=== PATIENT | female | born 1985 | race Caucasian/White ===

== ENCOUNTER → 2020-11-01 | Outpatient (CLI) | payer OTHER ==
[2020-11-01 13:30] LABS: HEMATOCRIT 36.6 % (36.0-47.0); HEMOGLOBIN 11.5 g/dl (12.0-15.5); MEAN CORPUSCULAR HEMOGLOBIN 25.9 pg (27.0-33.0); MEAN CORPUSCULAR HGB CONC 31.4 g/dl (32.0-36.5); MEAN CORPUSCULAR VOLUME 82.4 fl (80.0-96.0); PLATELET COUNT, AUTOMATED 451 10^3/uL (150-450); RED BLOOD COUNT 4.44 10^6/uL (4.00-5.40); WHITE BLOOD COUNT 10.5 10^3/uL (4.0-10.0)
[2020-11-01 14:43] LABS: HCG, SERUM QUANTITATIVE 2054 MIU/ML; HEPATITIS B SURFACE ANTIGEN NEGATIVE (NEGATIVE)
[2020-11-01 14:57] LABS: HEPATITIS C VIRUS ABY INDEX 0.2 INDEX (<0.8)
[2020-11-01 14:58] LABS: HIV 1&2 SCREEN CENTAUR NEGATIVE (NEGATIVE)
== END ==
LOC: M PLALAB 09:58
PROVIDERS: ATTEND Advanced Practice Midwife
DX: Z32.01 Encounter for pregnancy test, result positive (principal)

== ENCOUNTER → 2020-11-01 | Outpatient (REF) | payer OTHER | LOC: M LAB REF 12:35 | PROVIDERS: ATTEND Advanced Practice Midwife | DX: Z32.01 Encounter for pregnancy test, result positive (principal) ==

== ENCOUNTER → 2020-11-13 | Outpatient (REF) | payer OTHER | LOC: M LAB REF 16:20 | PROVIDERS: ATTEND Advanced Practice Midwife | DX: N39.0 Urinary tract infection, site not specified (principal) ==

== ENCOUNTER → 2020-11-15 | Outpatient (CLI) | payer OTHER ==
--- NOTE | 2020-11-15 16:10 | REP ---
INDICATION: DATING/VIABILITY. COMPARISON: None. TECHNIQUE: Real-time sonographic evaluation of gravid uterus performed. FINDINGS: There is a single living intrauterine gestation. The estimated gestational age is 7 weeks 0 days based on a crown-rump length of 10 mm, EDC 07/04/2021. The heart rate is 136 beats per minute. Cervix is closed and measures 4.1 cm in length. There is no evidence of a subchorionic hemorrhage. There is a 2.7 complex cystic area in the left ovary probably representing a corpus luteum. Blood flow is seen in the left ovary with duplex Doppler evaluation. The right ovary is unremarkable. IMPRESSION: Viable intrauterine gestation as above. <Electronically signed by Clinton Morris > 11/15/20 [id number]
== END ==
LOC: M WHC 10:04
PROVIDERS: ATTEND Advanced Practice Midwife
DX: Z36.9 Encounter for antenatal screening, unspecified (principal); Z3A.01 Less than 8 weeks gestation of pregnancy

== ENCOUNTER → 2020-12-16 | Outpatient (CLI) | payer OTHER ==
[2020-12-16 11:50] LABS: CREATININE, URINE 66.8 MG/DL; URINE TOTAL PROTEIN 5.9 MG/DL (0-12)
[2020-12-16 12:09] LABS: ALT/SGPT 13 U/L (12-78); BILIRUBIN,TOTAL 0.2 MG/DL (0.2-1.0); FREE THYROXINE INDEX 3.3 % (1.3-4.8); GLOMERULAR FILTRATION RATE > 60.0 (>60); LDH LACTATE DEHYDROGENASE 119 U/L (84-246); T UPTAKE 23 % (30-39); THYROXINE (T4) 14.5 UG/DL (4.5-12.0); URIC ACID 3.6 MG/DL (2.6-6.0)
[2020-12-16 15:07] LABS: CREATININE 24 HOUR, URINE 1870.4 MG/24HR (600-1800); TOTAL PROTEIN 24 HOUR URINE 165.2 MG/24HR (50-150)
== END ==
LOC: M PLALAB 08:15
PROVIDERS: ATTEND Advanced Practice Midwife
DX: Z36.89 Encounter for other specified antenatal screening (principal); Z3A.00 Weeks of gestation of pregnancy not specified

== ENCOUNTER → 2021-02-17 | Outpatient (CLI) | payer OTHER ==
--- NOTE | 2021-02-17 09:22 | REP ---
INDICATION: ANATOMY. COMPARISON: 11/15/2020. TECHNIQUE: Real-time sonographic evaluation of the gravid uterus performed. FINDINGS: Estimated gestational age is20 weeks 3 days, EDC 07/04/2021. Today's measurements indicate appropriate growth. Presentation: Variable Placenta anterior, grade 1, without evidence of placenta previa. heart rate is recorded at 161 beats per minute. Amniotic fluid is subjectively normal. Closed cervical length is measured at 4.2 cm. Biometry chart: BPD: 50 mm, 21 weeks 2 days, 70th percentile. HC: 195 mm, 21 weeks 5 days, 86th percentile AC: 160 mm, 21 weeks 1 days, 63rd percentile Femur length: 35 mm, 21 weeks 1 days, 68th percentile HC to AC ratio: 1.22, normal range 1.06-1.24. Estimated weight: 405g, 83rd percentile. anatomy: Cranium: Grossly normal Lateral Ventricles/Choroid Plexus: Grossly normal Posterior Fossa/Cerebellum: Grossly normal Nose/lips/profile: Grossly normal Four chamber heart: Not well seen Right ventricular outflow tract: Not well seen Left ventricular outflow tract: Not well seen Left-sided stomach: Grossly normal Kidneys: Not well seen Bladder: Grossly normal Cord Insertion: Grossly normal 3 vessel cord: Grossly normal Spine: Not well seen IMPRESSION: Viable single intrauterine gestation as above. Four-chamber heart, ventricular outflow tracts, kidneys and spine not well seen due to position and patient body habitus. <Electronically signed by Clinton Morris > 02/17/21 [id number]
== END ==
LOC: M WHC 06:58
PROVIDERS: ATTEND Obstetrics & Gynecology
DX: O09.512 Supervision of elderly primigravida, second trimester (principal); Z3A.20 20 weeks gestation of pregnancy

== ENCOUNTER → 2021-03-19 | Outpatient (CLI) | payer OTHER, MEDICAID ==
--- NOTE | 2021-03-19 10:46 | REP ---
INDICATION: F/U ANATOMY COMPARISON: 02/17/2021 TECHNIQUE: Transabdominal obstetrical ultrasound with color Doppler evaluation. FINDINGS: Examination demonstrates a single live intrauterine in breech presentation. motion is identified by technologist. Placenta is noted anterior and grade 1 without evidence for placenta previa or abruption. Amniotic fluid volume is normal. Cervix measures 3.7 cm in length and appears closed.. Gestational age by 1st U/S 24 weeks 5 days with CORI 07/04/2021. Gestational age by current measurements 25 weeks 6 days with CORI 06/26/2021. FHR equals 156 beats per minute. Estimated weight 839 grams (61stpercentile). Anatomical assessment demonstrates normal structures including spine and kidneys. Continued limited evaluation of the heart and ventricular outflow tracts due to positioning. IMPRESSION: Single live intrauterine in breech presentation demonstrating appropriate estimated weight and growth. Continued limited evaluation of the heart and cardiac ventricular outflow tracts. <Electronically signed by Mega Glynn > 03/19/21 [id number]
== END ==
LOC: M WHC 07:39
PROVIDERS: ATTEND Advanced Practice Midwife
DX: Z36.89 Encounter for other specified antenatal screening (principal); Z3A.25 25 weeks gestation of pregnancy

== ENCOUNTER → 2021-04-28 | Outpatient (CLI) | payer OTHER, MEDICAID ==
[2021-04-28 13:34] LABS: HEMATOCRIT 33.2 % (36.0-47.0); HEMOGLOBIN 10.4 g/dl (12.0-15.5); MEAN CORPUSCULAR HEMOGLOBIN 27.2 pg (27.0-33.0); MEAN CORPUSCULAR HGB CONC 31.3 g/dl (32.0-36.5); MEAN CORPUSCULAR VOLUME 86.7 fl (80.0-96.0); PLATELET COUNT, AUTOMATED 321 10^3/uL (150-450); RED BLOOD COUNT 3.83 10^6/uL (4.00-5.40); WHITE BLOOD COUNT 11.5 10^3/uL (4.0-10.0)
== END ==
LOC: M LAB 12:05
PROVIDERS: ATTEND Advanced Practice Midwife
DX: Z34.82 Encounter for supervision of other normal pregnancy, second trimester (principal)

== ENCOUNTER → 2021-05-26 | Outpatient (CLI) | payer OTHER, MEDICAID ==
[2021-05-26 09:24] LABS: CREATININE 24 HOUR, URINE 1938.2 MG/24HR (600-1800); CREATININE, URINE 88.1 MG/DL; TOTAL PROTEIN 24 HOUR URINE 200.2 MG/24HR (50-150); URINE TOTAL PROTEIN 9.1 MG/DL (0-12)
[2021-05-26 09:33] LABS: HEMATOCRIT 33.3 % (36.0-47.0); HEMOGLOBIN 10.6 g/dl (12.0-15.5); MEAN CORPUSCULAR HEMOGLOBIN 27.2 pg (27.0-33.0); MEAN CORPUSCULAR HGB CONC 31.8 g/dl (32.0-36.5); MEAN CORPUSCULAR VOLUME 85.6 fl (80.0-96.0); PLATELET COUNT, AUTOMATED 328 10^3/uL (150-450); RED BLOOD COUNT 3.89 10^6/uL (4.00-5.40); WHITE BLOOD COUNT 9.7 10^3/uL (4.0-10.0)
[2021-05-26 09:38] LABS: ALT/SGPT 20 U/L (12-78); BILIRUBIN,TOTAL 0.2 MG/DL (0.2-1.0); CREATININE FOR GFR 0.46 MG/DL (0.55-1.30); GLOMERULAR FILTRATION RATE > 60.0 (>60); LDH LACTATE DEHYDROGENASE 156 U/L (84-246); URIC ACID 3.8 MG/DL (2.6-6.0)
== END ==
LOC: M LAB 08:31
PROVIDERS: ATTEND Advanced Practice Midwife
DX: O10.013 Pre-existing essential hypertension complicating pregnancy, third trimester (principal); Z3A.00 Weeks of gestation of pregnancy not specified

== ENCOUNTER → 2021-05-29 | Outpatient (REF) | payer OTHER, MEDICAID | LOC: M LAB REF 13:19 | PROVIDERS: ATTEND Obstetrics & Gynecology | DX: Z36.89 Encounter for other specified antenatal screening (principal) ==

== ENCOUNTER → 2021-06-03 | Outpatient (CLI) | payer OTHER, MEDICAID ==
--- NOTE | 2021-06-03 14:58 | REP ---
INDICATION: PREG, NON REACTIVE NST. TECHNIQUE: Transabdominal scanning FINDINGS: Multiple ultrasonographic images of the gravid uterus shows a single living intrauterine gestation in the cephalic presentation. Doppler interrogation of the heart shows a heart rate of 162 beats per minute. The placenta is anterior and not low-lying. The cervix measures 3.6 cm in length and is closed. Doppler interrogation of the umbilical artery shows an A\B ratio of 2.09. This is within the normal range. The subjective amniotic fluid volume is within normal limits. The calculated amniotic fluid index is 10.4 with an expected range 7.8 to 24.9. biophysical profile score is 2 for breathing, 2 for movement, 2 for tone, and 2 for amniotic fluid volume giving a sum total of 8/8. FINDINGS: As above IMPRESSION: Limited OB ultrasound as described above. <Electronically signed by Bo Luna > 06/03/21 [id number]
== END ==
LOC: M RAD 13:30
PROVIDERS: ATTEND Obstetrics & Gynecology
DX: O10.013 Pre-existing essential hypertension complicating pregnancy, third trimester (principal)

== ENCOUNTER → 2021-06-25 | Outpatient (CLI) | payer OTHER, MEDICAID ==
--- NOTE | 2021-06-25 16:12 | REP ---
INDICATION: NON REACTIVE NFT. Gestational diabetes a . Pre-existing essential hypertension. For biophysical profile and LILLI. COMPARISON: Comparison study June 03, 2021. TECHNIQUE: Limited transabdominal obstetric scanning. FINDINGS: Limited Ob sonography demonstrates a viable cephalic intrauterine gestation. heart rate is recorded at 149 beats per minute. Anterior grade 2 placenta is seen. Amniotic fluid is subjectively decreased. LILLI is decreased at 5.2 cm. Biophysical profile score is 8 out of a possible 8. SD ratio in the umbilical cord artery by Doppler is normal at 2.06. IMPRESSION: Oligohydramnios. Biophysical profile 06/01. <Electronically signed by Dionisio Dejesus > 06/25/21 [id number]
== END ==
LOC: M RAD 15:27
PROVIDERS: ATTEND Advanced Practice Midwife
DX: O10.013 Pre-existing essential hypertension complicating pregnancy, third trimester (principal); O24.415 Gestational diabetes mellitus in pregnancy, controlled by oral hypoglycemic drugs; O41.03X0 Oligohydramnios, third trimester, not applicable or unspecified; Z3A.00 Weeks of gestation of pregnancy not specified

== ENCOUNTER → 2021-07-15 | Outpatient (REF) | payer OTHER, MEDICAID | LOC: M LAB REF 11:53 | PROVIDERS: ATTEND Specialist | DX: Z11.52 Encounter for screening for COVID-19 (principal) ==

== ENCOUNTER → 2023-01-03 | Outpatient (REF) | payer BC, MEDICAID | LOC: M LAB REF 20:27 | PROVIDERS: ATTEND Physician Assistant | DX: R07.0 Pain in throat (principal) ==

== ENCOUNTER → 2023-03-12 | Outpatient (REF) | payer BC, MEDICAID ==
[2023-03-12 17:23] LABS: BLOOD UREA NITROGEN 13 MG/DL (9-23); CALCIUM LEVEL 8.9 MG/DL (8.5-10.1); CARBON DIOXIDE LEVEL 26 MMOL/L (20-31); CHLORIDE LEVEL 104 MMOL/L (98-107); CREATININE FOR GFR 0.49 MG/DL (0.55-1.30); GLOMERULAR FILTRATION RATE > 60.0 (>60); GLUCOSE, FASTING 124 MG/DL (60-100); POTASSIUM SERUM 4.9 MMOL/L (3.5-5.1); SODIUM LEVEL 136 MMOL/L (136-145)
== END ==
LOC: M LAB REF 16:18
PROVIDERS: ATTEND Physician Assistant
DX: I10 Essential (primary) hypertension (principal)

== ENCOUNTER → 2023-05-26 | Outpatient (REF) | payer BC, MEDICAID ==
[2023-05-26 17:11] LABS: HEMATOCRIT 39.8 % (36.0-47.0); HEMOGLOBIN 13.3 g/dl (12.0-15.5); MEAN CORPUSCULAR HEMOGLOBIN 28.4 pg (27.0-33.0); MEAN CORPUSCULAR HGB CONC 33.4 g/dl (32.0-36.5); PLATELET COUNT, AUTOMATED 359 10^3/uL (150-450); RED BLOOD COUNT 4.68 10^6/uL (4.00-5.40)
[2023-05-26 17:34] LABS: ALBUMIN 3.6 G/DL (3.2-5.2); ALKALINE PHOSPHATASE 80 U/L (46-116); ALT/SGPT 30 U/L (7.0-40); AST/SGOT 33 U/L (<34); BILIRUBIN,TOTAL 0.4 MG/DL (0.3-1.2); BLOOD UREA NITROGEN 10 MG/DL (9-23); CALCIUM LEVEL 8.6 MG/DL (8.5-10.1); CARBON DIOXIDE LEVEL 21 MMOL/L (20-31); CHLORIDE LEVEL 104 MMOL/L (98-107); CHOLESTEROL LEVEL 165 MG/DL (<200); CHOLESTEROL RISK RATIO 3.97 (<5); CREATININE FOR GFR 0.42 MG/DL (0.55-1.30); GLOMERULAR FILTRATION RATE > 60.0 (>60); GLUCOSE, FASTING 105 MG/DL (60-100); HDL CHOLESTEROL 41.5 MG/DL (>40); LDL CHOLESTEROL 94.5 MG/DL (<100); NON-HDL-C 123.5 MG/DL; POTASSIUM SERUM 4.7 MMOL/L (3.5-5.1); SODIUM LEVEL 136 MMOL/L (136-145); TRIGLYCERIDES LEVEL 145 MG/DL (<150)
[2023-05-26 18:18] LABS: HEMOGLOBIN A1c 6.4 % (4.0-6.0)
== END ==
LOC: M LAB REF 16:07
PROVIDERS: ATTEND Physician Assistant
DX: I10 Essential (primary) hypertension (principal)

== ENCOUNTER → 2023-09-09 | Outpatient (REF) | payer BC, MEDICAID, OTHER ==
[2023-09-09 17:06] LABS: CREATININE, URINE 137.6 MG/DL
[2023-09-09 17:07] LABS: MAU/CREAT RATIO 42.1 MCG/MG (0.0-30.0)
== END ==
LOC: M LAB REF 16:19
PROVIDERS: ATTEND Nurse Practitioner Family
DX: R73.03 Prediabetes (principal)

== ENCOUNTER → 2023-11-12 | Outpatient (CLI) | payer OTHER ==
[2023-11-12 15:33] LABS: HEMATOCRIT 36.3 % (36.0-47.0); MEAN CORPUSCULAR HEMOGLOBIN 28.8 pg (27.0-33.0); MEAN CORPUSCULAR HGB CONC 33.1 g/dl (32.0-36.5); MEAN CORPUSCULAR VOLUME 87.3 fl (80.0-96.0); PLATELET COUNT, AUTOMATED 429 10^3/uL (150-450); RED BLOOD COUNT 4.16 10^6/uL (4.00-5.40); WHITE BLOOD COUNT 11.6 10^3/uL (4.0-10.0)
== END ==
LOC: M LAB 13:18
PROVIDERS: ATTEND Nurse Practitioner Women's Health
DX: N92.4 Excessive bleeding in the premenopausal period (principal); T83.32XA Displacement of intrauterine contraceptive device, initial encounter

== ENCOUNTER → 2023-11-12 | Outpatient (CLI) | payer OTHER ==
[2023-11-12 14:16] LABS: HEMATOCRIT 35.9 % (36.0-47.0)
[2023-11-12 14:17] LABS: BASO # 0.1 10^3/uL (0.0-0.2); BASO % 0.5 % (0.0-1.0); EOS # 0.2 10^3/uL (0.0-0.5); EOS % 1.6 % (0.0-3.0); HEMOGLOBIN 12.1 g/dl (12.0-15.5); LYMPH % 35.4 % (24.0-44.0); MEAN CORPUSCULAR HEMOGLOBIN 29.4 pg (27.0-33.0); MEAN CORPUSCULAR HGB CONC 33.6 g/dl (32.0-36.5); MEAN CORPUSCULAR VOLUME 87.4 fl (80.0-96.0); MONO # 0.7 10^3/uL (0.0-0.8); NEUTROPHILS # 6.3 10^3/uL (1.5-8.5); NEUTROPHILS % 56.2 % (36.0-66.0); PLATELET COUNT, AUTOMATED 429 10^3/uL (150-450); RED BLOOD COUNT 4.12 10^6/uL (4.00-5.40); WHITE BLOOD COUNT 11.3 10^3/uL (4.0-10.0)
[2023-11-12 14:37] LABS: IRON (FE) 69 UG/DL (50-170)
[2023-11-12 14:38] LABS: ALBUMIN 3.5 G/DL (3.2-5.2); ALKALINE PHOSPHATASE 77 U/L (46-116); ALT/SGPT 19 U/L (7.0-40); AST/SGOT 11 U/L (<34); BILIRUBIN,TOTAL 0.4 MG/DL (0.3-1.2); BLOOD UREA NITROGEN 9 MG/DL (9-23); CALCIUM LEVEL 9.2 MG/DL (8.5-10.1); CARBON DIOXIDE LEVEL 26 MMOL/L (20-31); CHLORIDE LEVEL 110 MMOL/L (98-107); CREATININE FOR GFR 0.54 MG/DL (0.55-1.30); GLOMERULAR FILTRATION RATE > 60.0 (>60); GLUCOSE, FASTING 82 MG/DL (60-100); PERCENT SATURATION 21.9 % (13.2-45.0); PHOSPHORUS LEVEL 3.5 MG/DL (2.5-4.9); POTASSIUM SERUM 4.1 MMOL/L (3.5-5.1); SODIUM LEVEL 142 MMOL/L (136-145); TOTAL IRON BINDING CAPACITY 315 UG/DL (250-425); TOTAL PROTEIN 6.8 G/DL (5.7-8.2)
[2023-11-12 14:40] LABS: FERRITIN 54.7 NG/ML (7.3-270.7); TOTAL 25(OH) VITAMIN D 42.1 NG/ML (20.0-100.0); VITAMIN B12 LEVEL 255 PG/ML (211-911)
[2023-11-12 14:41] LABS: HEMOGLOBIN A1c 5.5 % (4.0-6.0)
== END ==
LOC: M LAB 13:21
PROVIDERS: ATTEND Student in an Organized Health Care Education/Training Program
DX: Z98.84 Bariatric surgery status (principal)

== ENCOUNTER 2023-12-14 08:27 | Emergency (ER) | payer MEDICAID, OTHER ==
[~2023-12-14] VITALS: Ht 157.5 cm; Wt 96.7 kg
[2023-12-14 08:28] VITALS: BP 186/104; TEMP 96.5; O2SAT 98
== END 2023-12-14 12:05 | disposition left against medical advice (07) ==
LOC: M ED 08:27
DX: Z53.21 Procedure and treatment not carried out due to patient leaving prior to being seen by health care provider (principal)

== ENCOUNTER → 2023-12-21 | Outpatient (REF) | payer MEDICAID | LOC: M LAB REF 17:58 | PROVIDERS: ATTEND Physician Assistant | DX: Z12.4 Encounter for screening for malignant neoplasm of cervix (principal); Z11.3 Encounter for screening for infections with a predominantly sexual mode of transmission ==

== ENCOUNTER → 2024-01-04 | Outpatient (CLI) | payer MEDICAID, OTHER | LOC: M RAD 12:37 | PROVIDERS: ATTEND Nurse Practitioner Women's Health | DX: T83.32XA Displacement of intrauterine contraceptive device, initial encounter (principal); N83.201 Unspecified ovarian cyst, right side; N83.202 Unspecified ovarian cyst, left side; Y83.1 Surgical operation with implant of artificial internal device as the cause of abnormal reaction of the patient, or of later complication, without mention of misadventure at the time of the procedure ==

== ENCOUNTER 2024-06-21 12:14 | Day surgery (SDC) | payer OTHER ==
[~2024-06-21] VITALS: Ht 157.5 cm; Wt 83.5 kg
[~2024-06-21 12:14] MED LIST: ABIL1TAB11 PO; CETI10TA4 PO; CITRTAB18 PO; CVS5000S2 PO; LOSA100T46 PO; LR 1,000 ML IV SCH; THERTAB52 PO; VENL150C43 PO; VENL75CA47 PO
[2024-06-21] MEDS ORDERED: LR 1,000 ML IV SCH ×3 (12:55→15:50)
[2024-06-21] MEDS ORDERED: fentaNYL 100 MCG/2 ML INJECTION As Ordered ONE (14:14)
[2024-06-21] MEDS ORDERED: propofoL 200 MG/20 ML VIAL As Ordered ONE (14:14)
[2024-06-21] MEDS ORDERED: MIDAZOLAM INJ 2MG/2ML VIAL As Ordered ONE (14:14)
[2024-06-21] MEDS ORDERED: GLYCOPYRROLATE INJ 0.2 MG/ML 2 ML VIAL As Ordered ONE (14:14)
[2024-06-21] MEDS ORDERED: ONDANSETRON 4MG 2ML VIAL As Ordered ONE (14:14)
[2024-06-21] MEDS ORDERED: KETOROLAC 60MG 2ML VIAL As Ordered ONE (14:14)
[2024-06-21] MEDS ORDERED: ACETAMINOPHEN 1000MG 100ML IV BAG As Ordered ONE (14:14)
[2024-06-21] MEDS: LIDOCAINE 1% SDV 30ML VIAL As Ordered ONE (14:15)
[2024-06-21] MEDS ORDERED: LIDOCAINE 2% 100MG/5ML SDV (FOR ANES.) As Ordered ONE (14:16)
[2024-06-21] MEDS: LEVONORGESTREL 52MG (MIRENA) IUD As Ordered ONE (14:57)
[2024-06-21] MEDS ORDERED: ONDANSETRON 4MG 2ML VIAL IV PRN (15:05)
[2024-06-21] MEDS ORDERED: fentaNYL 100 MCG/2 ML INJECTION IV PRN (15:05)
[2024-06-21] MEDS ORDERED: HYDROMORPHONE HCL 0.5 MG/ 0.5 ML SYRINGE IV PRN (15:05)
[2024-06-21] MEDS ORDERED: oxyCODONE 5MG TAB PO PRN (15:05)
[2024-06-21 15:45] VITALS: BP 130/83; TEMP 97.9; O2SAT 100
[2024-06-21] MEDS ORDERED: PERCOCET 5MG/325MG TAB PO PRN (15:50)
[2024-06-21] MEDS ORDERED: SIMETHICONE 80MG CHEW TAB PO SCH (18:00)
[2024-06-22] MEDS ORDERED: IBUPROFEN 800 MG TAB PO SCH
== END 2024-06-21 16:05 | disposition home or self-care (01) ==
LOC: M SDC 12:14
PROVIDERS: ATTEND Obstetrics & Gynecology
DX: T83.32XA Displacement of intrauterine contraceptive device, initial encounter (principal); Y79.2 Prosthetic and other implants, materials and accessory orthopedic devices associated with adverse incidents; I10 Essential (primary) hypertension; J45.909 Unspecified asthma, uncomplicated; Z79.899 Other long term (current) drug therapy; F17.290 Nicotine dependence, other tobacco product, uncomplicated; F32.A Depression, unspecified; F41.9 Anxiety disorder, unspecified; Z98.84 Bariatric surgery status; Z91.013 Allergy to seafood; Z88.1 Allergy status to other antibiotic agents; Z88.8 Allergy status to other drugs, medicaments and biological substances

== ENCOUNTER 2024-06-28 19:45 | Emergency (ER) | payer OTHER ==
[~2024-06-28 19:45] MED LIST changes: -LR 1,000 ML IV SCH
== END 2024-06-28 20:18 | disposition left against medical advice (07) ==
LOC: M ED 19:45
DX: Z53.21 Procedure and treatment not carried out due to patient leaving prior to being seen by health care provider (principal)

== ENCOUNTER → 2024-09-25 | Outpatient (REF) | LOC: M EMP 07:55 | PROVIDERS: ATTEND Family Medicine | DX: Z11.52 Encounter for screening for COVID-19 (principal) ==

== ENCOUNTER → 2024-09-25 | Outpatient (REF) | LOC: M EMP 07:59 | PROVIDERS: ATTEND Family Medicine | DX: Z11.52 Encounter for screening for COVID-19 (principal) ==

== ENCOUNTER → 2024-12-07 | Outpatient (CLI) | payer OTHER ==
[2024-12-07 19:10] LABS: BLOOD UREA NITROGEN 23 MG/DL (9-23); CALCIUM LEVEL 8.7 MG/DL (8.5-10.1); CARBON DIOXIDE LEVEL 25 MMOL/L (20-31); CHLORIDE LEVEL 103 MMOL/L (98-107); CREATININE FOR GFR 0.77 MG/DL (0.55-1.30); GLOMERULAR FILTRATION RATE > 60.0 (>58); GLUCOSE, FASTING 68 MG/DL (60-100); POTASSIUM SERUM 4.7 MMOL/L (3.5-5.1); SODIUM LEVEL 140 MMOL/L (136-145); THYROID STIMULATING HORMONE 0.508 uIU/ML (0.55-4.78)
== END ==
LOC: M LAB 13:29
PROVIDERS: ATTEND Physician Assistant
DX: I10 Essential (primary) hypertension (principal)

== ENCOUNTER → 2025-01-08 | Outpatient (REF) | LOC: M EMP 12:41 | PROVIDERS: ATTEND Family Medicine | DX: Z11.52 Encounter for screening for COVID-19 (principal) ==

== ENCOUNTER → 2025-03-10 | Outpatient (CLI) | payer OTHER | LOC: M LAB 13:28 | PROVIDERS: ATTEND Physician Assistant | DX: R89.1 Abnormal level of hormones in specimens from other organs, systems and tissues (principal) ==

== ENCOUNTER → 2025-04-24 | Outpatient (REF) | payer OTHER | LOC: M LAB REF 17:37 | PROVIDERS: ATTEND Nurse Practitioner Family | DX: R10.12 Left upper quadrant pain (principal) ==

== ENCOUNTER → 2025-05-01 | Outpatient (CLI) | payer OTHER ==
[~2025-05-01] MED LIST changes: +ISOVUE-370 76% 100 ML VIAL As Ordered ONE
== END ==
LOC: M RAD 10:09
PROVIDERS: ATTEND Nurse Practitioner Family
DX: R10.12 Left upper quadrant pain (principal)
CPT/HCPCS: 74177; Q9967

== ENCOUNTER → 2025-05-06 | Outpatient (CLI) | payer OTHER ==
[~2025-05-06] MED LIST changes: -ISOVUE-370 76% 100 ML VIAL As Ordered ONE
== END ==
LOC: M RAD 09:02
PROVIDERS: ATTEND Nurse Practitioner Family
DX: M25.512 Pain in left shoulder (principal); R10.12 Left upper quadrant pain

== ENCOUNTER → 2025-05-06 | Outpatient (CLI) | payer OTHER ==
[2025-05-06 10:13] LABS: PLATELET COUNT, AUTOMATED 375 10^3/uL (150-450)
[2025-05-06 10:45] LABS: ALT/SGPT 19 U/L (7.0-40); AST/SGOT 16 U/L (<34); CALCIUM LEVEL 9.4 MG/DL (8.5-10.1); CARBON DIOXIDE LEVEL 29 MMOL/L (20-31); CHLORIDE LEVEL 104 MMOL/L (98-107); CREATININE FOR GFR 0.70 MG/DL (0.55-1.30); GLOMERULAR FILTRATION RATE > 90.0 (>58); IRON (FE) 67 UG/DL (50-170); MAGNESIUM LEVEL 2.0 MG/DL (1.8-2.4); PERCENT SATURATION 18.3 % (13.2-45.0); PHOSPHORUS LEVEL 3.5 MG/DL (2.5-4.9); POTASSIUM SERUM 3.9 MMOL/L (3.5-5.1); SODIUM LEVEL 142 MMOL/L (136-145)
[2025-05-06 11:26] LABS: ESTIMATED AVERAGE GLUCOSE 114.0 MG/DL (60-110)
[2025-05-06 12:25] LABS: TOTAL 25(OH) VITAMIN D 38.6 NG/ML (20.0-100.0); VITAMIN B12 LEVEL > 2000 PG/ML (211-911)
== END ==
LOC: M LAB 09:05
PROVIDERS: ATTEND Physician Assistant Surgical
DX: K91.2 Postsurgical malabsorption, not elsewhere classified (principal); Z98.84 Bariatric surgery status; Z86.39 Personal history of other endocrine, nutritional and metabolic disease

== ENCOUNTER → 2025-05-25 | Outpatient (CLI) | payer OTHER | LOC: M RAD 08:34 | PROVIDERS: ATTEND Nurse Practitioner Family | DX: R10.12 Left upper quadrant pain (principal) | CPT/HCPCS: 78227; A9537 ==

== ENCOUNTER 2025-06-18 08:39 | Day surgery (SDC) | payer OTHER ==
[~2025-06-18] VITALS: Ht 157.5 cm; Wt 88.0 kg
[~2025-06-18 08:39] MED LIST changes: +CHLO125TA PO; +CYAN500T14 PO; +PANT20TA6 PO; +PROA1AER2 IN; +SUCR1TA PO
[2025-06-18 11:10] VITALS: TEMP 98.4
[2025-06-18 11:40] VITALS: BP 114/85; O2SAT 100
== END 2025-06-18 11:45 | disposition home or self-care (01) ==
LOC: M OPP 08:39
PROVIDERS: ATTEND Surgery
DX: K28.9 Gastrojejunal ulcer, unspecified as acute or chronic, without hemorrhage or perforation (principal); R10.84 Generalized abdominal pain; Z98.84 Bariatric surgery status; Z88.1 Allergy status to other antibiotic agents; Z88.8 Allergy status to other drugs, medicaments and biological substances; Z91.048 Other nonmedicinal substance allergy status; Z79.899 Other long term (current) drug therapy; J45.909 Unspecified asthma, uncomplicated; F17.290 Nicotine dependence, other tobacco product, uncomplicated

== ENCOUNTER → 2025-08-02 | Outpatient (CLI) | payer OTHER ==
[~2025-08-02] MED LIST changes: +BIOT5CAP8 PO
== END ==
LOC: M EKG 17:09
PROVIDERS: ATTEND Anesthesiology
DX: I51.89 Other ill-defined heart diseases (principal)

== ENCOUNTER 2025-08-06 12:27 | Day surgery (SDC) | payer OTHER ==
[~2025-08-06] VITALS: Ht 157.5 cm; Wt 89.3 kg
[~2025-08-06 12:27] MED LIST changes: +INDOCYANINE GREEN 25 MG VIAL IV ONE
[2025-08-06] MEDS ORDERED: MIDAZOLAM INJ 2 MG/2 ML VIAL As Ordered ONE (13:08)
[2025-08-06] MEDS ORDERED: ROCURONIUM BROMIDE 50MG/5ML VIAL As Ordered ONE (13:09)
[2025-08-06] MEDS ORDERED: LIDOCAINE 2% 100 MG/5 ML SDV (FOR ANES.) As Ordered ONE (13:09)
[2025-08-06] MEDS ORDERED: dexAMETHasone 4 MG/ML 1 ML VIAL As Ordered ONE (13:11)
[2025-08-06] MEDS: LR 1,000 ML IV SCH (13:26)
[2025-08-06] MEDS: ceFAZolin SOD 2 GM IV ONCE IV ONE (13:59)
[2025-08-06] MEDS ORDERED: ACETAMINOPHEN 1000MG/100ML IV BAG As Ordered ONE (14:10)
[2025-08-06] MEDS: INDOCYANINE GREEN 25 MG VIAL As Ordered ONE (14:12)
[2025-08-06] MEDS: HEPARIN SOD 5000 UNITS/ML 1 ML VIAL/SYRINGE SQ ONE (14:15)
[2025-08-06] MEDS ORDERED: KETOROLAC 30 MG/ML 1 ML VIAL As Ordered ONE (14:34)
[2025-08-06] MEDS ORDERED: ONDANSETRON 4MG 2ML VIAL As Ordered ONE (14:34)
[2025-08-06] MEDS ORDERED: dexmedeTOMIDine (4 MCG/ML) 200 MCG/50 ML BTL As Ordered ONE (14:40)
[2025-08-06] MEDS ORDERED: SUGAMMADEX SODIUM 500 MG/5 ML VIAL As Ordered ONE (14:50)
[2025-08-06] MEDS ORDERED: MORPHINE 4 MG/ML 1 ML VIAL IV PRN (15:05)
[2025-08-06] MEDS: ONDANSETRON 4MG 2ML VIAL IV PRN (15:15)
[2025-08-06 18:40] VITALS: BP 163/84; TEMP 97.5; O2SAT 99
== END 2025-08-06 18:44 | disposition home or self-care (01) ==
LOC: M SDC 12:27
PROVIDERS: ATTEND Surgery
DX: K80.20 Calculus of gallbladder without cholecystitis without obstruction (principal); I10 Essential (primary) hypertension; J45.909 Unspecified asthma, uncomplicated; F17.290 Nicotine dependence, other tobacco product, uncomplicated; F41.9 Anxiety disorder, unspecified; F32.A Depression, unspecified; Z98.84 Bariatric surgery status; Z79.899 Other long term (current) drug therapy; Z88.1 Allergy status to other antibiotic agents; Z88.8 Allergy status to other drugs, medicaments and biological substances; Z91.048 Other nonmedicinal substance allergy status
CPT/HCPCS: 47562; 81025; 88304; J0131; J0665; J0688; J1100; J1885; J2250; J2405; J2550; J2765; J3010; Q9968; S2900

== ENCOUNTER → 2025-10-24 | Outpatient (REF) ==
[~2025-10-24] MED LIST changes: -INDOCYANINE GREEN 25 MG VIAL IV ONE
[2025-10-24 10:39] LABS: SOFIA COVID ANTIGEN NEGATIVE (NEGATIVE)
== END ==
LOC: M EMP 09:32
PROVIDERS: ATTEND Family Medicine
DX: Z11.52 Encounter for screening for COVID-19 (principal)